=== PATIENT | male | born 1990 | race Caucasian/White ===

== ENCOUNTER 2016-12-08 19:49 | Emergency (ER) | payer SELFPAY ==
[~2016-12-08] VITALS: Ht 177.8 cm; Wt 90.7 kg
[~2016-12-08 19:49] MED LIST: FLEXERIL PO; IBUPROFEN800 MG PO; PERCOCET5/325 PO; ZANTAC PO
== END 2016-12-08 22:27 | disposition home or self-care (01) ==
LOC: SED 19:49
DX: H66.91 Otitis media, unspecified, right ear (principal); F17.210 Nicotine dependence, cigarettes, uncomplicated
CPT/HCPCS: 99282